=== PATIENT | female | born 1980 | race Hispanic/Latino ===

== ENCOUNTER 2023-04-05 20:06 | Emergency (ER) | payer BC ==
--- NOTE | 2023-04-05 20:36 | RAD REPORT ---
EXAM DESCRIPTION: CT - Ct Stroke Brain Wo Cont - 04/05/2023 8:29 pm CLINICAL HISTORY: STROKE ALERT Headache, drowsiness, CVA COMPARISON: <Comparisons> TECHNIQUE: All CT scans are performed using dose optimization technique as appropriate and may inclu de automated exposure control or mA/KV adjustment according to patient size. FINDINGS: No intracranial hemorrhage, hydrocephalus or extra-axial fluid collection.No areas of brai n edema or evidence of midline shift. The paranasal sinuses and mastoids are clear. The calvarium is intact. IMPRESSION: No acute intracranial abnormality. If there is continued clinical concern for CVA, MR imaging of the brain would be recommended. The findings were discussed with FLAQUITA Manning on 04/05/2023 at 8:32 p.m. by telephone.
[2023-04-05 20:38] LABS: Absolute Lymphocytes (CBC) 3.6 K/uL (0.7-4.9); Hematocrit 41.8 % (36.0-45.0); Lymphocytes % 31.6 % (15.3-44.8); MCV 87.8 fL (80-100); MPV 9.4 fL (7.6-11.3); RBC Red Blood Cell Count 4.76 M/uL (3.86-4.86)
--- NOTE | 2023-04-05 20:42 | RAD REPORT ---
EXAM DESCRIPTION: RAD - Chest Single View - 04/05/2023 8:35 pm CLINICAL HISTORY: CVA Chest pain. COMPARISON: <Comparisons> FINDINGS: Portable technique limits examination quality. The lungs are grossly clear. Moderate cardiomegaly. No displaced fractures. IMPRESSION: Moderate cardiomegaly.
[2023-04-05 20:43] LABS: Protime INR 0.95
[2023-04-05] MEDS ORDERED: TENECTEPLASE 50 MG/10 ML VIAL IV ONE (20:50)
[2023-04-05 20:58] LABS: ALT/SGPT 28 U/L (13-56); AST/SGOT 15 U/L (15-37); Albumin 3.9 g/dL (3.4-5.0); Alkaline Phosphatase 75 U/L (45-117); BUN Blood Urea Nitrogen 10 mg/dL (7-18); Bicarbonate 25 mEq/L (21-32); Bilirubin Total 0.2 mg/dL (0.2-1.0); Glomerular Filtration Rate 111 ml/min (=/>90); Glucose Level 115 mg/dL (74-106); Magnesium 2.3 mg/dL (1.6-2.4); Potassium 3.5 mEq/L (3.5-5.1); Protein, Total 7.7 g/dL (6.4-8.2); Sodium Level 143 mEq/L (136-145); Troponin High Sensitivity 4.5 pg/mL (<58.9)
[2023-04-05 21:21] LABS: Bilirubin Direct < 0.1 mg/dL (0-0.2); Bilirubin Indirect, Calculated ND mg/dL (0.2-0.8)
[2023-04-05] MEDS ORDERED: ACETAMINOPHEN 500 MG TAB ONE (21:34)
--- NOTE | 2023-04-05 21:53 | RAD REPORT ---
EXAM DESCRIPTION: CT - Head angio - 04/05/2023 9:44 pm CLINICAL HISTORY: CVA Headache, drowsiness, CVA COMPARISON: <Comparisons> TECHNIQUE: CT angiography of the head was performed with MIPs. All CT scans are performed using dose optimization technique as appropriate and may include automated exposure control or mA/KV adjustment according to patient size. FINDINGS: No evidence of large vessel occlusion. No evidence of aneurysm is detected. No flow-limiti ng stenosis or vascular malformation identified. The right vertebral artery appears to terminate in PICA, normal variant. Forward flow seen in the lef t vertebral artery. The visualized dural venous sinuses are patent. IMPRESSION: No significant flow abnormality is detected.
--- NOTE | 2023-04-05 21:58 | RAD REPORT ---
EXAM DESCRIPTION: CT - Neck Angio - 04/05/2023 9:44 pm CLINICAL HISTORY: cva Headache, drowsiness, CVA symptomology COMPARISON: <Comparisons> TECHNIQUE: CT angiography of the neck vessels was performed with MIPs. All CT scans are performed using dose optimization technique as appropriate and may include automated exposure control or mA/KV adjustment according to patient size. FINDINGS: A left aortic arch is identified with normal three vessel configuration of the great vesse ls. No significant flow abnormality is seen of the common carotid bilaterally. A large soft plaque is present involving the right carotid bulb resulting in 80-90% stenosis based on NASCET criteria. Mild to moderate soft plaque is present involving the left carotid bulb resulting i n 50-60% stenosis based on NASCET criteria. Forward flow seen in both vertebral arteries with left-sided dominant. IMPRESSION: 80-90% stenosis right carotid bulb suspected. 50-60% stenosis left carotid bulb. NASCET criteria used. Mild 0-49% stenosis Moderate 50-69% stenosis Severe 70-99% stenosis
--- NOTE | 2023-04-05 23:14 | ER ---
Nurse's Notes [facility] Name: Caroline Kaiser Age: 42 yrs Sex: Female : 1980 Arrival Date: 04/05/2023 Time: 20:06 Bed 3 Private MD: Diagnosis: Acute cerebrovascular accident, acute ischemic stroke, status post TNK, hypertension,;Cerebrovascular disease, unspecified Presentation: 04/05 20:15 Chief complaint: Patient states: C/O dizziness, left sided facial droop, right eye pf1 blurred vision, nausea, dizziness and headache pain of 10,onset yesterday at 1700, worse today at 1000, worsening symptoms of slurred speech at 1700 today. Patient stated did not come in early due to having to go to work. Patient stated history of CVA 2 years ago. 20:15 Coronavirus screen: Vaccine status: Patient reports being unvaccinated. Ebola Screen: pf1 Patient negative for fever greater than or equal to 101.5 degrees Fahrenheit, and additional compatible Ebola Virus Disease symptoms. Initial Sepsis Screen: Does the patient meet any 2 criteria? No. Patient's initial sepsis screen is negative. Does the patient have a suspected source of infection? No. Patient's initial sepsis screen is negative. Risk Assessment: Do you want to hurt yourself or someone else? Patient reports no desire to harm self or others. Onset of symptoms was April 04, 2023 at 17:00. 20:15 Method Of Arrival: EMS: [facility] pf1 20:15 Acuity: ANKUR 2 pf1 Triage Assessment: 20:15 General: Appears uncomfortable, Behavior is cooperative, appropriate for age, crying. 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 Last tetanus immunization: < 5 years ago Flu vaccine is not up to date. - Social history:: Patient/guardian denies using alcohol, street drugs, IV drugs, caffeine, over the counter diet medications, Reports vaping tobacco, Smoking status: Patient reports the use of cigarette tobacco products, smokes one-half pack cigarettes per day. - Family history:: not pertinent. Screenin:11 [facility] ED Fall Risk Assessment (Adult) History of falling in the last 3 months, pf1 including since admission No falls in past 3 months (0 pts) Confusion or Disorientation No (0 pts) Intoxicated or Sedated No (0 pts) Impaired Gait Yes (1 pt) Mobility Assist Device Used No (0 pt) Altered Elimination No (0 pt) Score/Fall Risk Level 0 - 2 = Low Risk Oriented to surroundings, Maintained a safe environment, Educated pt \\T\\ family on fall prevention, incl call for assistance when getting out of bed, Assessed \\T\\ reinforced patient's understanding of fall precautions, Provided non-skid footwear, Hourly rounding (assess needs \\T\\ fall precautionary measures) done, Used ambulatory aids as needed (educated on \\T\\ assisted with), Used gait belt as appropriate. Abuse screen: Denies threats or abuse. Nutritional screening: No deficits noted. Tuberculosis screening: No symptoms or risk factors identified. 21:30 Betty Swallow Protocol Brief Cognitive Screen What is your name? Normal, Where are you pf1 right now? Normal, What year is it? Normal. Oral Mechanism Examination Facial Symmetry: Normal, Motion: Normal, Lip Closure: Normal, Oral Mechanism Result: Normal. 3 oz Water Swallow Challenge: Pt able to drink all water without stopping, coughing, choking or throat clearing: Yes Result: PASS. Assessment: 20:15 General: Appears in no apparent distress. uncomfortable, well groomed, well developed, pf1 Behavior is cooperative, appropriate for age, crying. 20:15 Pain: Complains of pain in generalized headache pain of 10,onset yesterday at 1700 Pain pf1 currently is 10 out of 10 on a pain scale. Neuro: Level of Consciousness is awake, alert, obeys commands, Oriented to person, place, time, situation, Twisting Frame Fixer are weak on right Moves all extremities. Weakness in right arm(s) leg(s) Gait is unsteady, Speech is slurred, Facial droop on left, Pupils are PERRLA, paresthesias in right sided face, arm and leg Reports blurred vision in right eye dizziness, headache in entire paresthesias in right arm and right leg and right side face since yesterday at 1700, worsen symptoms of slurred speech at 1700 tonight. Cardiovascular: Capillary refill < 3 seconds Patient's skin is warm and dry. Respiratory: No deficits noted. Airway is patent Trachea midline Respiratory effort is even, unlabored, Respiratory pattern is regular, symmetrical, Breath sounds are clear bilaterally. GI: Abdomen is round non-distended, Bowel sounds present X 4 quads. Reports nausea. : No deficits noted. No signs and/or symptoms were reported regarding the genitourinary system. EENT: No deficits noted. No signs and/or symptoms were reported regarding the EENT system. Derm: No deficits noted. No signs and/or symptoms reported regarding the dermatologic system. Musculoskeletal: Circulation, motion, and sensation intact. Capillary refill < 3 seconds, Range of motion: intact in all extremities. 20:30 General: patient signed consent to received the TNK. pf1 20:50 Reassessment: see paper charting for TNK flowsheet. pf1 21:00 Reassessment: Patient appears in no apparent distress at this time. No changes from pf1 previously documented assessment. Patient and/or family updated on plan of care and expected duration. Pain level reassessed. Patient is alert, oriented x 3, equal unlabored respirations, skin warm/dry/pink. Patient states symptoms have not improved. 21:50 Reassessment: Patient appears in no apparent distress at this time. Patient and/or pf1 family updated on plan of care and expected duration. Pain level reassessed. Patient is alert, oriented x 3, equal unlabored respirations, skin warm/dry/pink. Patient denies pain at this time. Patient states feeling better. Patient states symptoms have improved. 21:50 Reassessment: Patient stated "my gums are bleeding." Notified Dr. Corea. Explained pf1 to patient the risks that can happen with getting the medication that can cause the gums to bleed. Patient verbalized understanding of medication side effects. . 22:50 Reassessment: Patient appears in no apparent distress at this time. Patient and/or pf1 family updated on plan of care and expected duration. Pain level reassessed. Patient is alert, oriented x 3, equal unlabored respirations, skin warm/dry/pink. Patient denies pain at this time. Patient states feeling better. Patient states symptoms have improved. 23:50 Reassessment: Patient appears in no apparent distress at this time. Patient and/or pf1 family updated on plan of care and expected duration. Pain level reassessed. Patient is alert, oriented x 3, equal unlabored respirations, skin warm/dry/pink. Patient denies pain at this time. Patient states feeling better. Patient states symptoms have improved. 04/06 00:42 Reassessment: Patient appears in no apparent distress at this time. Patient and/or pf1 family updated on plan of care and expected duration. Pain level reassessed. Patient is alert, oriented x 3, equal unlabored respirations, skin warm/dry/pink. Patient states feeling better. Patient states symptoms have improved. Vital Signs: 04/05 20:15 BP 165 / 91; Pulse 65; Resp 18; Temp 98.6; Pulse Ox 97% on R/A; Weight 97 kg; Height 5 pf1 ft. 3 in. ; Pain 10/10; 21:05 BP 171 / 106; Pulse 63; Resp 16; Pulse Ox 97% on R/A; Pain 0/10; pf1 22:05 BP 164 / 76; Pulse 58; Resp 18; Pulse Ox 98% on R/A; Pain 0/10; pf1 23:00 BP 162 / 83; Pulse 55; Resp 16; Pulse Ox 99% on R/A; Pain 0/10; pf1 23:45 BP 149 / 88; Pulse 52; Resp 16; Temp 98.4; Pulse Ox 97% on R/A; Pain 0/10; pf1 04/06 00:20 BP 141 / 86; Pulse 60; Resp 18; Temp 98.1; Pulse Ox 98% on R/A; Pain 0/10; pf1 04/05 20:15 Body Mass Index 37.88 (97.00 kg, 160.02 cm) pf1 04/05 20:15 Pain Scale: Adult pf1 21:05 Pain Scale: Adult pf1 22:05 Pain Scale: Adult pf1 23:00 Pain Scale: Adult pf1 23:45 Pain Scale: Adult pf1 04/06 00:20 Pain Scale: Adult pf1 [place] Coma Score: 04/05 20:17 Eye Response: spontaneous(4). Motor Response: obeys commands(6). Verbal Response: sp4 oriented(5). Total: 15. NIH Stroke Scale Scores: 20:15 NIHSS Score: 5 pf1 20:17 NIHSS Score: 3 sp4 21:50 NIHSS Score: 2 pf1 04/06 00:40 NIHSS Score: 2 pf1 ED Course: 04/05 20:11 Patient arrived in ED. eh3 20:15 No provider procedures requiring assistance completed. Maintain EMS IV. Dressing pf1 intact. Good blood return noted. Site clean \\T\\ dry. Gauge \\T\\ site: 18gauge to right wrist. 20:15 Arm band placed on left wrist. pf1 20:15 Patient has correct armband on for positive identification. Placed in gown. Bed in low pf1 position. Call light in reach. Side rails up X2. 20:16 Alton Corea MD is Attending Physician. sp4 20:29 Basic Metabolic Panel Sent. pf1 20:29 CBC with Diff Sent. pf1 20:29 Hepatic Function Sent. pf1 20:29 High Sensitivity Troponin Sent. pf1 20:29 Magnesium Sent. pf1 20:29 Protime (+inr) Sent. pf1 20:29 Ptt, Activated Sent. pf1 20:31 CT Stroke Brain w/o Contrast In Process Unspecified. EDMS 20:37 Stroke CXR 1 View In Process Unspecified. EDMS 21:09 Triage completed. pf1 21:46 CT Head Angio In Process Unspecified. EDMS 21:46 CT Neck Angio In Process Unspecified. EDMS 22:46 Intiated Transfer with Gregoria at [facility] but denied due to Bed Capacity. rv1 22:50 Initiated Transfer with Ashlie Krishnamurthy at [facility]. rv1 23:01 Test, Serum Sent. pf1 23:01 COVID-19 SARS RT PCR Sent. pf1 23:[address] Tate at [facility] to 8A Rm [id number]. rv1 04/06 00:42 Patient transferred, IV remains in place. pf1 Administered Medications: 04/05 20:50 Drug: TNK FOR STROKE - Tenecteplase IV 0.25 mg/kg {Co-Signature: lg3 (Ramo, pf1 Alejandra CARCAMO).} Route: IV; Rate: per protocol; Site: right wrist; 20:51 Follow up: IV Status: Completed infusion pf1 21:50 Follow up: Response: No adverse reaction; Marked relief of symptoms pf1 21:30 Drug: Acetaminophen PO 1000 mg Route: PO; pf1 22:06 Follow up: Response: No adverse reaction; Marked relief of symptoms; Pain is unchanged, pf1 physician notified Medication: 20:15 VIS not applicable for this client. pf1 Outcome: 23:14 ER care complete, transfer ordered by MD. del rosario 04/06 00:46 Transferred by ground EMS to [facility], Transfer form pf1 completed. X-rays sent w/ patient. Condition: stable Instructed on the need for admit, Demonstrated understanding of instructions, Patient report given to Leroy with [facility] and Patient report given to CARLOS ALBERTO Cabral at [facility] 00:47 Patient left the ED. pf1 NIH Stroke Scale - NIH Stroke Score Date: 04/05/2023 Time: 20:15 Total Score = 5 10. Dysarthria (speech clarity - read or repeat words) - 1(Mild to Moderate) 11. Extinction and Inattention (visual/tactile/auditory/spatial/personal) - 0(No abnormality) 1a. Level of Consciousness (LOC) - 0(Alert) 1b. Level of Consciousness (LOC) (Month \\T\\ Age) - 0(Both) 1c. LOC Commands (Open \\T\\ Closes Eyes/Pantograph Setter) - 0(Both) 2. Best Gaze (Lateral Gaze Paresis) - 0(Normal) 3. Visual Field Loss - 0(No visual loss) 4. Facial Palsy - 1(Minor Paralysis) 5a. Left Arm: Motor (10-second hold) - 0(No drift) 5b. Right Arm: Motor (10-second hold) - 1(Drift) 6a. Left Leg: Motor (5-second hold - always test supine) - 0(No drift) 6b. Right Leg: Motor (5-second hold - always test supine) - 1(Drift) 7. Limb Ataxia (finger/nose \\T\\ heel/johnson - test with eyes open) - 0(Absent) 8. Sensory Loss (pinprick arms/legs/face) - 1(Mild to moderate loss) 9. Best Language: Aphasia (description/naming/reading) - 0(No aphasia) Initials: pf1 NIH Stroke Scale - NIH Stroke Score Date: 04/05/2023 Time: 20:17 Total Score = 3 10. Dysarthria (speech clarity - read or repeat words) - 0(Normal) 11. Extinction and Inattention (visual/tactile/auditory/spatial/personal) - 0(No abnormality) 1a. Level of Consciousness (LOC) - 0(Alert) 1b. Level of Consciousness (LOC) (Month \\T\\ Age) - 0(Both) 1c. LOC Commands (Open \\T\\ Closes Eyes/Pantograph Setter) - 0(Both) 2. Best Gaze (Lateral Gaze Paresis) - 0(Normal) 3. Visual Field Loss - 0(No visual loss) 4. Facial Palsy - 1(Minor Paralysis) 5a. Left Arm: Motor (10-second hold) - 0(No drift) 5b. Right Arm: Motor (10-second hold) - 0(No drift) 6a. Left Leg: Motor (5-second hold - always test supine) - 0(No drift) 6b. Right Leg: Motor (5-second hold - always test supine) - 0(No drift) 7. Limb Ataxia (finger/nose \\T\\ heel/johnson - test with eyes open) - 0(Absent) 8. Sensory Loss (pinprick arms/legs/face) - 1(Mild to moderate loss) 9. Best Language: Aphasia (description/naming/reading) - 1(Mild to moderate aphasia) Initials: sp4 NIH Stroke Scale - NIH Stroke Score Date: 04/05/2023 Time: 21:50 Total Score = 2 10. Dysarthria (speech clarity - read or repeat words) - 0(Normal) 11. Extinction and Inattention (visual/tactile/auditory/spatial/personal) - 0(No abnormality) 1a. Level of Consciousness (LOC) - 0(Alert) 1b. Level of Consciousness (LOC) (Month \\T\\ Age) - 0(Both) 1c. LOC Commands (Open \\T\\ Closes Eyes/Pantograph Setter) - 0(Both) 2. Best Gaze (Lateral Gaze Paresis) - 0(Normal) 3. Visual Field Loss - 0(No visual loss) 4. Facial Palsy - 1(Minor Paralysis) 5a. Left Arm: Motor (10-second hold) - 0(No drift) 5b. Right Arm: Motor (10-second hold) - 0(No drift) 6a. Left Leg: Motor (5-second hold - always test supine) - 0(No drift) 6b. Right Leg: Motor (5-second hold - always test supine) - 0(No drift) 7. Limb Ataxia (finger/nose \\T\\ heel/johnson - test with eyes open) - 0(Absent) 8. Sensory Loss (pinprick arms/legs/face) - 1(Mild to moderate loss) 9. Best Language: Aphasia (description/naming/reading) - 0(No aphasia) Initials: pf1 NIH Stroke Scale - NIH Stroke Score Date: 04/06/2023 Time: 00:40 Total Score = 2 10. Dysarthria (speech clarity - read or repeat words) - 0(Normal) 11. Extinction and Inattention (visual/tactile/auditory/spatial/personal) - 0(No abnormality) 1a. Level of Consciousness (LOC) - 0(Alert) 1b. Level of Consciousness (LOC) (Month \\T\\ Age) - 0(Both) 1c. LOC Commands (Open \\T\\ Closes Eyes/Pantograph Setter) - 0(Both) 2. Best Gaze (Lateral Gaze Paresis) - 0(Normal) 3. Visual Field Loss - 0(No visual loss) 4. Facial Palsy - 1(Minor Paralysis) 5a. Left Arm: Motor (10-second hold) - 0(No drift) 5b. Right Arm: Motor (10-second hold) - 0(No drift) 6a. Left Leg: Motor (5-second hold - always test supine) - 0(No drift) 6b. Right Leg: Motor (5-second hold - always test supine) - 0(No drift) 7. Limb Ataxia (finger/nose \\T\\ heel/johnson - test with eyes open) - 0(Absent) 8. Sensory Loss (pinprick arms/legs/face) - 1(Mild to moderate loss) 9. Best Language: Aphasia (description/naming/reading) - 0(No aphasia) Initials: pf1 Signatures: Dispatcher [employer] EDOH Catalina Huston RN RN eh3 Evelia Salazar RN RN pf1 Ana De Souza1 Alton Corea MD MD sp4 Alejandra Ralph RN lg3 Corrections: (The following items were deleted from the chart) 04/05 21:09 21:01 Chief complaint: Patient states: C/O dizziness, left sided facial droop, pf1 right eye blurred vision, nausea, dizziness and headache pain of 10,onset yesterday at 1700, worse today at 1000, worsening symptoms of slurred speech at 1700 today. Patient stated did not come in early due to having to go to work. Patient stated history of CVA 2 years ago. pf1 21:50 20:15 NIHSS Score: 4 pf1 pf1
--- NOTE | 2023-04-05 23:15 | EDPHYS ---
Physician Documentation [facility] Name: Caroline Kaiser Age: 42 yrs Sex: Female : 1980 Arrival Date: 04/05/2023 Time: 20:06 Bed 3 Private MD: ED Physician Alton Corea HPI: 04/05 20:17 This 42 yrs old Female presents to ER via Unassigned with complaints of sp4 slurring of the speech. 20:17 42-year-old female with history of prior CVA in June 2020 presents with acute onset sp4 of slurred speech starting at 5 PM today estimated time. Patient also reports associated headache has been there since this morning. Patient also reported some facial numbness. EMS who brought the patient noticed left-sided facial droop. Patient denied weakness in the arms or legs. Denied problems with coordination, denied problems with vision. Patient states she is borderline diabetic, denied tobacco alcohol drugs, denied taking any blood thinners at home. . 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 Last tetanus immunization: < 5 years ago Flu vaccine is not up to date. - Social history:: Patient/guardian denies using alcohol, street drugs, IV drugs, caffeine, over the counter diet medications, Reports vaping tobacco, Smoking status: Patient reports the use of cigarette tobacco products, smokes one-half pack cigarettes per day. - Family history:: not pertinent. ROS: 20:17 Constitutional: Negative for fever, chills, and weight loss, positive for slurring sp4 of the speech, positive for left-sided facial numbness, positive for left-sided facial droop. Eyes: Negative for injury, pain, redness, and discharge, ENT: Negative for injury, pain, and discharge, Neck: Negative for injury, pain, and swelling, Cardiovascular: Negative for chest pain, palpitations, and edema, Respiratory: Negative for shortness of breath, cough, wheezing, and pleuritic chest pain, Abdomen/GI: Negative for abdominal pain, nausea, vomiting, diarrhea, and constipation, Back: Negative for injury and pain, : Negative for injury, bleeding, discharge, and swelling, MS/Extremity: Negative for injury and deformity, Skin: Negative for injury, rash, and discoloration, Neuro: Positive for left-sided facial numbness, left-sided facial drooping, and slurred speech. Negative for weakness in the arms or legs, for coordination problem Psych: Negative for depression, anxiety, Allergy/Immunology: Negative for hives, rash, and allergies Endocrine: Negative for neck swelling, polydipsia, polyuria, polyphagia, and weight changes Hematologic/Lymphatic: Negative for swollen nodes, abnormal bleeding, and unusual bruising Exam: 20:17 Constitutional: This is a well developed, well nourished patient who is awake, alert, sp4 and in no acute distress. Head/Face: Normocephalic, atraumatic. Eyes: Pupils equal round and reactive to light, extra-ocular motions intact. Lids and lashes normal. Conjunctiva and sclera are not injected. Cornea within normal limits. Periorbital areas with no swelling, redness, or edema. ENT: Nares patent. No nasal discharge, no septal abnormalities noted. Tympanic membranes are normal and external auditory canals are clear. Oropharynx with no redness, swelling, or masses, exudates, or evidence of obstruction, uvula midline. Mucous membranes moist. Neck: Trachea midline, no thyromegaly or masses palpated, and no cervical lymphadenopathy. Supple, full range of motion without nuchal rigidity, or vertebral point tenderness. No Meningismus. Chest/axilla: Normal chest wall appearance and motion. Nontender with no deformity. No lesions are appreciated. Cardiovascular: Regular rate and rhythm with a normal S1 and S2. No gallops, murmurs, or rubs. Normal PMI, no JVD. No pulse deficits. Respiratory: Lungs have equal breath sounds bilaterally, clear to auscultation and percussion. No rales, rhonchi or wheezes noted. No increased work of breathing, no retractions or nasal flaring. Abdomen/GI: Soft, non-tender, with normal bowel sounds. No distension or tympany. No guarding or rebound. No evidence of tenderness throughout. Back: No spinal tenderness. No costovertebral tenderness. Skin: Warm, dry with normal turgor. Normal color with no rashes, no lesions, and no evidence of cellulitis. MS/ Extremity: Pulses equal, no cyanosis. Neurovascular intact. Full, normal range of motion. Neuro: Awake and alert, GCS 15, oriented to person, place, time, and situation. Mild left-sided facial drooping, mild slurring of the speech, no signs of dysarthria, upper and lower extremity strength 5 out of 5, diminished sensation left side of the face. There is normal gait, normal coordination, Psych: Awake, alert, with orientation to person, place and time. Behavior, mood, and affect are within normal limits 20:58 ECG was reviewed by the Attending Physician. EKG time 2035, there is sinus bradycardia sp4 at the rate of 59, no ST elevation or depression, there is LVH, borderline EKG Vital Signs: 20:15 BP 165 / 91; Pulse 65; Resp 18; Temp 98.6; Pulse Ox 97% on R/A; Weight 97 kg; Height 5 pf1 ft. 3 in. ; Pain 10/10; 21:05 BP 171 / 106; Pulse 63; Resp 16; Pulse Ox 97% on R/A; Pain 0/10; pf1 22:05 BP 164 / 76; Pulse 58; Resp 18; Pulse Ox 98% on R/A; Pain 0/10; pf1 23:00 BP 162 / 83; Pulse 55; Resp 16; Pulse Ox 99% on R/A; Pain 0/10; pf1 23:45 BP 149 / 88; Pulse 52; Resp 16; Temp 98.4; Pulse Ox 97% on R/A; Pain 0/10; pf1 04/06 00:20 BP 141 / 86; Pulse 60; Resp 18; Temp 98.1; Pulse Ox 98% on R/A; Pain 0/10; pf1 04/05 20:15 Body Mass Index 37.88 (97.00 kg, 160.02 cm) pf1 04/05 20:15 Pain Scale: Adult pf1 21:05 Pain Scale: Adult pf1 22:05 Pain Scale: Adult pf1 23:00 Pain Scale: Adult pf1 23:45 Pain Scale: Adult pf1 04/06 00:20 Pain Scale: Adult pf1 NIH Stroke Scale Scores: 04/05 20:15 NIHSS Score: 5 pf1 20:17 NIHSS Score: 3 sp4 21:50 NIHSS Score: 2 pf1 04/06 00:40 NIHSS Score: 2 pf1 Byron Coma Score: 04/05 20:17 Eye Response: spontaneous(4). Motor Response: obeys commands(6). Verbal Response: sp4 oriented(5). Total: 15. MDM: 20:33 ED course: CT stroke protocol negative at [address] Cohen. snw 20:40 ED course: CT report negative for bleeding, verbal report received from radiologist, sp4 patient has agreed to TNK administration. We will proceed with TNKase. 20:43 Patient medically screened. sp4 22:44 Differential Diagnosis altered mental status, flu. sp4 22:45 Data reviewed: vital signs, nurses notes, EMS record, lab test result(s), cardiac sp4 enzymes, troponin i, CBC, electrolytes, hepatic panel, urinalysis, urine drug screen, UPT: negative. 22:46 Consideration of Admission/Observation Patient was admitted/placed on observation. sp4 Escalation of care including admission/observation considered. Management of patient was discussed with the following: Architectural Design Lecturer: Dr. Ferrer with neurology advised transfer for higher level of care for moderate to severe right carotid stenosis and associated symptoms of CVA. . Discussion of test interpretation with radiology: I had a discussion with radiology regarding a test interpretation. CT head reported as negative. ED course: Patient's speech has improved after IV TNK. Patient then had CT angio head and neck. CT angio head revealed no significant flow abnormality. CT angiography neck revealed 80 to 90% stenosis right carotid bulb. 50 to 60% stenosis left carotid bulb. So the neurologist advised transfer for higher level of care.. 23:08 ED course: Dr. Aparicio has accepted patient for the [facility], Dr. Naranjo at [place] [id number] has accepted patient as well, Neuro Intensive care. . 04/05 20:17 Order name: Basic Metabolic Panel; Complete Time: 22:36 4 04/05 20:17 Order name: CBC with Diff; Complete Time: 20:47 sp4 04/05 20:17 Order name: Hepatic Function; Complete Time: 22:36 sp4 04/05 20:17 Order name: High Sensitivity Troponin; Complete Time: 22:36 sp4 04/05 20:17 Order name: Magnesium; Complete Time: 22:36 sp4 04/05 20:17 Order name: Protime (+inr); Complete Time: 20:47 sp4 04/05 20:17 Order name: Ptt, Activated; Complete Time: 20:47 4 04/05 20:17 Order name: UDS 4 04/05 22:44 Order name: COVID-19 SARS RT PCR 04/05 22:45 Order name: Test, Serum 04/05 20:17 Order name: CT Stroke Brain w/o Contrast; Complete Time: 20:40 sp04/05 20:17 Order name: Stroke CXR 1 View; Complete Time: 20:47 sp4 04/05 20:41 Order name: CT Head Angio; Complete Time: 22:36 sp4 04/05 20:43 Order name: CT Neck Angio; Complete Time: 22:36 sp4 04/05 20:17 Order name: EKG; Complete Time: 20:18 4 04/05 20:17 Order name: Cardiac monitoring; Complete Time: 20:29 4 04/05 20:17 Order name: EKG - Nurse/Tech; Complete Time: 21:21 04/05 20:17 Order name: IV Saline Lock; Complete Time: 20:28 04/05 20:17 Order name: Labs collected and sent; Complete Time: 20:29 04/05 20:17 Order name: NPO 04/05 20:17 Order name: O2 Per Protocol; Complete Time: 20:29 04/05 20:17 Order name: O2 Sat Monitoring; Complete Time: 20:29 04/05 20:17 Order name: Stroke Swallow Screen; Complete Time: 21:34 sp4 EC:58 Rate is 59 beats/min. Rhythm is regular, Sinus bradycardia. QRS [place] is Normal. MS sp4 interval is normal. QRS interval is normal. T waves are Normal. No ST changes noted. Clinical impression: No evidence of ischemia. Interpreted by me. Administered Medications: 20:50 Drug: TNK FOR STROKE - Tenecteplase IV 0.25 mg/kg {Co-Signature: lg3 (Ramo, pf1 Alejandra CARCAMO).} Route: IV; Rate: per protocol; Site: right wrist; 20:51 Follow up: IV Status: Completed infusion pf1 21:50 Follow up: Response: No adverse reaction; Marked relief of symptoms pf1 21:30 Drug: Acetaminophen PO 1000 mg Route: PO; pf1 22:06 Follow up: Response: No adverse reaction; Marked relief of symptoms; Pain is unchanged, pf1 physician notified Disposition: 23:14 Co-signature as Attending Physician, Alton Corea MD I agree with the assessment sp4 and plan of care. I reviewed the patient's care provided by Advanced Practice Provider \T\ agree w/ the diagnosis \T\ care plan. I personally saw the pt \T\ performed a substantive portion of the visit, incldng all aspects of the (History/Exam/Medical Decision Making). Disposition Summary: 04/05/23 23:14 Transfer Ordered Transfer Location: [facility] sp4 Reason: Higher level of care sp4 Condition: Stable sp4 Problem: new sp4 Symptoms: have improved sp4 Accepting Physician: Alessandra BOWDEN [facility] , Jose A BOWDEN (04/06/23 00:47) pf1 Diagnosis - Acute cerebrovascular accident, acute ischemic stroke, status post TNK, sp4 hypertension, - Cerebrovascular disease, unspecified sp4 Forms: - Medication Reconciliation Form sp4 - SBAR form sp4 Critical care time excluding procedures: 23:08 Critical care time: Bedside Care: 46 minutes, Consultation: 12 minutes, Family sp4 Intervention: 12 minutes. Total time: 70 minutes NIH Stroke Scale - NIH Stroke Score Date: 04/05/2023 Time: 20:15 Total Score = 5 10. Dysarthria (speech clarity - read or repeat words) - 1(Mild to Moderate) 11. Extinction and Inattention (visual/tactile/auditory/spatial/personal) - 0(No abnormality) 1a. Level of Consciousness (LOC) - 0(Alert) 1b. Level of Consciousness (LOC) (Month \T\ Age) - 0(Both) 1c. LOC Commands (Open \T\ Closes Eyes/Cell Tuber Machine) - 0(Both) 2. Best Gaze (Lateral Gaze Paresis) - 0(Normal) 3. Visual Field Loss - 0(No visual loss) 4. Facial Palsy - 1(Minor Paralysis) 5a. Left Arm: Motor (10-second hold) - 0(No drift) 5b. Right Arm: Motor (10-second hold) - 1(Drift) 6a. Left Leg: Motor (5-second hold - always test supine) - 0(No drift) 6b. Right Leg: Motor (5-second hold - always test supine) - 1(Drift) 7. Limb Ataxia (finger/nose \T\ heel/johnson - test with eyes open) - 0(Absent) 8. Sensory Loss (pinprick arms/legs/face) - 1(Mild to moderate loss) 9. Best Language: Aphasia (description/naming/reading) - 0(No aphasia) Initials: pf1 NIH Stroke Scale - NIH Stroke Score Date: 04/05/2023 Time: 20:17 Total Score = 3 10. Dysarthria (speech clarity - read or repeat words) - 0(Normal) 11. Extinction and Inattention (visual/tactile/auditory/spatial/personal) - 0(No abnormality) 1a. Level of Consciousness (LOC) - 0(Alert) 1b. Level of Consciousness (LOC) (Month \T\ Age) - 0(Both) 1c. LOC Commands (Open \T\ Closes Eyes/Cell Tuber Machine) - 0(Both) 2. Best Gaze (Lateral Gaze Paresis) - 0(Normal) 3. Visual Field Loss - 0(No visual loss) 4. Facial Palsy - 1(Minor Paralysis) 5a. Left Arm: Motor (10-second hold) - 0(No drift) 5b. Right Arm: Motor (10-second hold) - 0(No drift) 6a. Left Leg: Motor (5-second hold - always test supine) - 0(No drift) 6b. Right Leg: Motor (5-second hold - always test supine) - 0(No drift) 7. Limb Ataxia (finger/nose \T\ heel/johnson - test with eyes open) - 0(Absent) 8. Sensory Loss (pinprick arms/legs/face) - 1(Mild to moderate loss) 9. Best Language: Aphasia (description/naming/reading) - 1(Mild to moderate aphasia) Initials: sp4 NIH Stroke Scale - NIH Stroke Score Date: 04/05/2023 Time: 21:50 Total Score = 2 10. Dysarthria (speech clarity - read or repeat words) - 0(Normal) 11. Extinction and Inattention (visual/tactile/auditory/spatial/personal) - 0(No abnormality) 1a. Level of Consciousness (LOC) - 0(Alert) 1b. Level of Consciousness (LOC) (Month \T\ Age) - 0(Both) 1c. LOC Commands (Open \T\ Closes Eyes/Cell Tuber Machine) - 0(Both) 2. Best Gaze (Lateral Gaze Paresis) - 0(Normal) 3. Visual Field Loss - 0(No visual loss) 4. Facial Palsy - 1(Minor Paralysis) 5a. Left Arm: Motor (10-second hold) - 0(No drift) 5b. Right Arm: Motor (10-second hold) - 0(No drift) 6a. Left Leg: Motor (5-second hold - always test supine) - 0(No drift) 6b. Right Leg: Motor (5-second hold - always test supine) - 0(No drift) 7. Limb Ataxia (finger/nose \T\ heel/johnson - test with eyes open) - 0(Absent) 8. Sensory Loss (pinprick arms/legs/face) - 1(Mild to moderate loss) 9. Best Language: Aphasia (description/naming/reading) - 0(No aphasia) Initials: pf1 NIH Stroke Scale - NIH Stroke Score Date: 04/06/2023 Time: 00:40 Total Score = 2 10. Dysarthria (speech clarity - read or repeat words) - 0(Normal) 11. Extinction and Inattention (visual/tactile/auditory/spatial/personal) - 0(No abnormality) 1a. Level of Consciousness (LOC) - 0(Alert) 1b. Level of Consciousness (LOC) (Month \T\ Age) - 0(Both) 1c. LOC Commands (Open \T\ Closes Eyes/Cell Tuber Machine) - 0(Both) 2. Best Gaze (Lateral Gaze Paresis) - 0(Normal) 3. Visual Field Loss - 0(No visual loss) 4. Facial Palsy - 1(Minor Paralysis) 5a. Left Arm: Motor (10-second hold) - 0(No drift) 5b. Right Arm: Motor (10-second hold) - 0(No drift) 6a. Left Leg: Motor (5-second hold - always test supine) - 0(No drift) 6b. Right Leg: Motor (5-second hold - always test supine) - 0(No drift) 7. Limb Ataxia (finger/nose \T\ heel/johnson - test with eyes open) - 0(Absent) 8. Sensory Loss (pinprick arms/legs/face) - 1(Mild to moderate loss) 9. Best Language: Aphasia (description/naming/reading) - 0(No aphasia) Initials: pf1 Signatures: Dispatcher [employer] EDRebeca West FNP-C COLLECTOR-Csnw Winston Campvoerde FNP-C COLLECTOR-Cla1 Evelia Salazar RN RN pf1 Alton Corea MD MD sp4 Alejandra Ralph RN lg3 Corrections: (The following items were deleted from the chart) 22:06 20:17 David manuel. sp4 pf1 04/06 00:47 04/05 23:14 Alessandra BOWDEN [facility] , Jose A BOWDEN sp4 pf1
[2023-04-06 01:06] VITALS: O2SAT 97
[2023-04-06 01:07] VITALS: BP 149/88; TEMP 98.4
[2023-04-06 01:21] LABS: Barbiturates NEGATIVE (NEGATIVE); Benzodiazepines NEGATIVE (NEGATIVE); Cocaine NEGATIVE (NEGATIVE); METHAMPHETAM NEGATIVE (NEGATIVE); Methadone NEGATIVE (NEGATIVE); Opiates NEGATIVE (NEGATIVE); Phencyclidine NEGATIVE (NEGATIVE); THC Cannibis POSITIVE (NEGATIVE)
--- NOTE | 2023-04-06 11:43 | EKG ---
Test Date: 2023-04-05 Test Time: 20:36:25 Logistical Engineer: CARLOS MANUEL MEASUREMENT RESULTS: Intervals: Rate: 59 AL: 166 QRSD: 86 QT: 406 QTc: 401 [place]: P: 44 AL: 166 QRS: -4 T: 8 INTERPRETIVE STATEMENTS: Sinus bradycardia with sinus arrhythmia Moderate voltage criteria for LVH, may be normal variant Borderline ECG No previous ECG available for comparison Electronically Signed On 04-06-23 11:41:29 CDT by Juan Manuel Markham
== END 2023-04-06 00:47 | disposition short-term general hospital (02) ==
LOC: ER 20:06
DX: I63.9 Cerebral infarction, unspecified (principal); R29.705 NIHSS score 5; Z20.822 Contact with and (suspected) exposure to COVID-19
CPT/HCPCS: 92977; 93005; 85025; 80048; 36415; 83735; 84703; 85610; 80076; 85730; 84484; 80307; 70496; 70498; 70450; 71045; 96374; 99291; 99292; U0003; Q9967; J3101